=== PATIENT | male | born 1955 | race Caucasian/White ===

== ENCOUNTER 2018-04-09 14:23 | Inpatient (IN) | payer BC ==
[2018-04-09 15:12] LABS: ADD MAN DIFF? NO
[2018-04-09 15:18] LABS: WHITE BLOOD COUNT 7.6 10^3/ul (4.8-10.8)
[2018-04-09 15:18] LABS: ABNORMAL IP MESSAGE 1; BASOPHILS % 0.3 % (0.0-2.0); EOSINOPHILS # 0.1 10^3/ul (0.0-0.5); EOSINOPHILS % 1.8 % (0.0-7.0); HEMATOCRIT 26.1 % (42.0-52.0); HEMOGLOBIN 8.7 g/dl (14.0-18.0); LYMPHOCYTES # 0.3 10^3/ul (0.8-2.9); LYMPHOCYTES % 3.5 % (15.0-51.0); MEAN CORPUSCULAR HEMOGLOBIN 35.1 pg (29.0-33.0); MEAN CORPUSCULAR HGB CONC 33.3 g/dl (32.0-37.0); MEAN CORPUSCULAR VOLUME 105.2 fl (82.0-101.0); MEAN PLATELET VOLUME 9.6 fl (7.4-10.4); MONOCYTE # 0.5 10^3/ul (0.3-0.9); MONOCYTES % 6.6 % (0.0-11.0); NEUTROPHIL # 6.6 10^3/ul (1.6-7.5); NEUTROPHILS % 86.9 % (39.0-77.0); PLATELET COUNT 159 10^3/UL (140-415); POSITIVE DIFF @See below; RED BLOOD COUNT 2.48 10^6/ul (4.70-6.10); RED CELL DISTRIBUTION WIDTH 13.5 % (11.5-14.5)
[2018-04-09] MEDS: SOD CHLORIDE 0.9% 500 ML IV (15:25)
[2018-04-09 15:38] LABS: ANION GAP 13 (8-16); BLOOD UREA NITROGEN 55 mg/dl (7-20); CARBON DIOXIDE 26 mmol/L (21-31); CHLORIDE 105 mmol/L (97-110); CREATININE 2.74 mg/dl (0.61-1.24); GLUCOSE 115 mg/dl (70-220); POTASSIUM 4.5 mmol/L (3.5-5.1); SODIUM 139 mmol/L (135-144)
[2018-04-09 15:40] LABS: INR 1.05; PARTIAL THROMBOPLASTIN TIME 28.9 Sec (25.0-35.0); PROTIME 13.8 Sec (11.9-14.9); PT RATIO 1.1
[2018-04-09 15:54] LABS: TROPONIN-I < 0.010 ng/ml (0.000-0.120)
[2018-04-09] MEDS: SOD CHLORIDE 0.9% 1,000 ML IV ×2 (16:16→18:45)
[2018-04-09] MEDS ORDERED: ACETAMINOPHEN 325 MG TAB PO ×2 (17:00→18:30)
[2018-04-09] MEDS ORDERED: ONDANSETRON 4 MG INJ IV ×2 (17:00→18:30)
[2018-04-09] MEDS: HYDROCODONE/APAP (10/325) TAB PO (18:08)
[2018-04-09] MEDS ORDERED: LORAZEPAM (2 MG/ML PO SYG) SL (18:30)
[2018-04-09] MEDS ORDERED: BISACODYL 10 MG SUPP PR (18:30)
[2018-04-09] MEDS ORDERED: HYDROCODONE/APAP (5/325) TAB PO (18:30)
[2018-04-09] MEDS ORDERED: DOCUSATE SODIUM 100 MG CAP PO (18:30)
[2018-04-09] MEDS ORDERED: NACL 0.9% 3 ML SYG IV (18:30)
[2018-04-09] MEDS ORDERED: ZOLPIDEM 5 MG TAB PO (18:30)
[2018-04-09] MEDS: morphine 2 MG INJ IV (20:34)
[2018-04-09] MEDS: GABAPENTIN 300 MG CAP PO (20:35)
[2018-04-09] MEDS: CAPECITABINE 500 MG TAB PO (22:23)
[2018-04-09] MEDS: MAGNESIUM HYDROXIDE 30ML CUP PO (22:47)
[2018-04-10] MEDS: morphine 2 MG INJ IV (02:23)
[2018-04-10] MEDS: SOD CHLORIDE 0.9% 1,000 ML IV ×2 (04:11→05:06)
[2018-04-10 07:24] LABS: ADD MAN DIFF? NO
[2018-04-10 07:25] LABS: WHITE BLOOD COUNT 5.1 10^3/ul (4.8-10.8)
[2018-04-10 07:25] LABS: ABNORMAL IP MESSAGE 1; BASOPHILS % 0.2 % (0.0-2.0); EOSINOPHILS # 0.2 10^3/ul (0.0-0.5); EOSINOPHILS % 3.3 % (0.0-7.0); HEMATOCRIT 23.7 % (42.0-52.0); HEMOGLOBIN 7.9 g/dl (14.0-18.0); LYMPHOCYTES # 0.4 10^3/ul (0.8-2.9); LYMPHOCYTES % 6.9 % (15.0-51.0); MEAN CORPUSCULAR HEMOGLOBIN 35.6 pg (29.0-33.0); MEAN CORPUSCULAR HGB CONC 33.3 g/dl (32.0-37.0); MEAN CORPUSCULAR VOLUME 106.8 fl (82.0-101.0); MEAN PLATELET VOLUME 10.2 fl (7.4-10.4); MONOCYTE # 0.5 10^3/ul (0.3-0.9); MONOCYTES % 9.6 % (0.0-11.0); NEUTROPHILS % 79.4 % (39.0-77.0); PLATELET COUNT 146 10^3/UL (140-415); POSITIVE DIFF @See below; RED BLOOD COUNT 2.22 10^6/ul (4.70-6.10); RED CELL DISTRIBUTION WIDTH 13.6 % (11.5-14.5)
[2018-04-10 07:46] LABS: HEMOGLOBIN A1C 5.7 % (0-5.9)
[2018-04-10 07:58] LABS: ANION GAP 9 (8-16); BLOOD UREA NITROGEN 50 mg/dl (7-20); CALCIUM 8.7 mg/dl (8.4-10.2); CARBON DIOXIDE 29 mmol/L (21-31); CHLORIDE 110 mmol/L (97-110); CREATININE 2.22 mg/dl (0.61-1.24); GLUCOSE 97 mg/dl (70-220); MAGNESIUM 2.4 mg/dl (1.7-2.5); PHOSPHORUS 3.8 mg/dl (2.5-4.9); POTASSIUM 4.7 mmol/L (3.5-5.1); SODIUM 143 mmol/L (135-144)
[2018-04-10] MEDS: PAROXETINE 10 MG TAB PO (08:54)
[2018-04-10] MEDS: SENNA TAB PO (08:54)
[2018-04-10] MEDS: ASPIRIN 81 MG TAB PO (08:54)
[2018-04-10] MEDS: GABAPENTIN 300 MG CAP PO (08:54)
[2018-04-10] MEDS: CAPECITABINE 500 MG TAB PO (09:00)
== END 2018-04-10 10:48 | disposition home or self-care (01) | DRG 312 ==
LOC: TEL 19:50 → E/R 14:23 → TEL 16:34
DX: I95.1 Orthostatic hypotension (principal); C85.90 Non-Hodgkin lymphoma, unspecified, unspecified site; N17.9 Acute kidney failure, unspecified; E86.0 Dehydration; Z51.5 Encounter for palliative care; N18.9 Chronic kidney disease, unspecified; D53.9 Nutritional anemia, unspecified; K76.9 Liver disease, unspecified; D63.8 Anemia in other chronic diseases classified elsewhere
CPT/HCPCS: 36415; 70450; 71045; 80048; 82962; 83036; 83735; 84100; 84484; 85025; 85610; 85730; 86850; 86900; 86901; 93005; 93880; 99285-25; G0378